=== PATIENT | female | born 1950 | race Caucasian/White ===

== ENCOUNTER 2023-02-26 11:00 | Outpatient (RCR) | payer OTHER, SELFPAY | END 2023-05-01 07:00 | disposition home or self-care (01) | LOC: HO.PTCHIC 11:00 | PROVIDERS: PCP Internal Medicine; Visit Provider Physician Assistant | DX: M25.812 Other specified joint disorders, left shoulder (principal) | CPT/HCPCS: 97110; 97140; 97161 ==

== ENCOUNTER 2023-07-04 11:00 | Outpatient (RCR) | payer OTHER, SELFPAY | END 2023-10-02 14:41 | disposition home or self-care (01) | LOC: HO.PTCHIC 11:00 | PROVIDERS: PCP Internal Medicine; Visit Provider Physician Assistant | DX: M75.121 Complete rotator cuff tear or rupture of right shoulder, not specified as traumatic (principal); M75.122 Complete rotator cuff tear or rupture of left shoulder, not specified as traumatic | CPT/HCPCS: 97110; 97140; 97162 ==